=== PATIENT | male | born 1980 | race Caucasian/White ===

== ENCOUNTER 2019-05-16 12:35 | Emergency (ER) | payer SELFPAY ==
[2019-05-16] MEDS ORDERED: CEFTRIAXONE SODIUM IM ONE (12:56)
[2019-05-16] MEDS ORDERED: LIDOCAINE 1% IM ONE (12:56)
[2019-05-16 13:03] VITALS: BP 146/85
--- NOTE | 2019-05-16 13:05 | ED Physician Documentation ---
Sore Throat/Dental Pain - HISTORIAN Historian: patient - HPI Stated Complaint: facial swelling Chief Complaint: Dental Pain Additional Information: Patient is a 38-year-old male that presents to the ER with c/o right sided; upper dental pain with right cheek swelling. Symptoms started 3 days ago. His teeth are completely rotted. He denies any meth use; states that his teeth are bad and admits to not ever brushing his teeth. He states that he is going to make a dentist appointment; explained that it is important for him to schedule appointment with dentist. Onset: days ago Context: Dental Caries, Possible Infection, Other (right cheek slightly swollen but soft) Associated Symptoms: denies: fever, chills, sore throat Worsened By: heat, cold - ROS CONST: no problems CVS/RESP: none GI/: denies: nausea, vomiting MS/SKIN/LYMPH: denies: muscle aches NEURO/PSYCH: none - PAST HX Past History: none Other History: other (joe in head as a kid ) Immunizations: UTD Allergies/Adverse Reactions: Allergies Allergy/AdvReac Type Severity Reaction Status Date / Time Penicillins Allergy Verified 05/16/19 13:02 Home Medications: Ambulatory Orders Medication Instructions Recorded NK 05/16/19 - SOCIAL HX Smoking History: greater than 1 pack/day Alcohol Use: none Drug Use: none - FAMILY HX Family History: No - VITAL SIGNS Vital Signs: Vital Signs Temp Pulse Resp BP Pulse Ox 98.6 F 79 18 146/85 98 05/16/19 12:46 05/16/19 12:46 05/16/19 12:46 05/16/19 12:46 05/16/19 12:46 - REVIEWED ASSESSMENTS Nursing Assessment Reviewed: Yes Vitals Reviewed: Yes ED Results Lab/Radiology - Orders Orders: ED Orders Category Date Time Status Ketorolac Tromethamine [Toradol] Med 05/16/19 12:56 Once 60 mg IM NOW ONE cefTRIAXone SODIUM [Rocephin] 500 mg Med 05/16/19 12:56 Ordered Lidocaine 1% 5ml [Xylocaine] 1 ml IM NOW Dental Pain Physical Exam - EXAM General Appearance: no acute distress, alert Head/Neck: head nml inspection, trachea midline, facial erythema (right cheek (soft)), neck nml inspection Eyes: eyes nml inspection, PERRL Mouth/Throat: lips nml, voice nml, membranes nml, widespread dental decay Ear/Nose: nml inspection Respiratory: breath sounds nml CVS: heart sounds nml Abdomen: normal bowel sounds Skin: warm/dry, normal color Neuro/Psych: none Discharge Clincal Impression: Dental infection Referrals: Primary Doctor,No [Primary Care Provider] - 2 Days Additional Instructions: Take Clindaymcin 300mg by mouth every 4 times a day for 10 days Alternate Tylenol and Ibuprofen as needed for discomfort Tramadol 50mg by mouth every 6 hours as needed for breakthrough pain #15 Follow up with Dentist BUCK Condition: Good Disposition: 01 HOME, SELF-CARE Decision to Admit: NO Decision Time: 13:48
[2019-05-16] MEDS: CLINDAMYCIN PHOSPHATE 900 MG/6 ML VIAL IM ONE (13:21)
[2019-05-16] MEDS: KETOROLAC TROMETHAMINE 60 MG/2 ML VIAL IM ONE (13:21)
== END 2019-05-16 13:45 | disposition home or self-care (01) ==
LOC: ED 12:35
DX: K04.7 Periapical abscess without sinus (principal)
CPT/HCPCS: 96372; 99284; J1885